=== PATIENT | female | born 1955 | race Caucasian/White ===

== ENCOUNTER 2016-08-27 02:47 | Emergency (ER) | payer BC ==
[~2016-08-27] VITALS: Ht 162.6 cm; Wt 67.0 kg
[2016-08-27 02:58] VITALS: Ht 162.6 cm; Wt 67.0 kg
[2016-08-27] MEDS ORDERED: ACETAMINOPHEN 500 MG TAB PO STA (03:22)
--- NOTE | 2016-08-27 03:26 | ERD ---
ER Documentation Chief Complaint Date/Time DATE: 08/27/16 TIME: 03:24 Chief Complaint fever,body aches,cough,chest congestion,lower back pain,[place] HPI 61-year-old female presents here in emergency department for complain of fever bodyaches, chest congestion, back pain and headache for 3 days. Patient has been having dry cough, does not cough up any phlegm or blood. Patient has not been having episodes of wheezing. Patient does not have any shortness of breath. Patient has been having fever, patient did not take any medications to help with symptoms. Patient denies any sick contacts. Patient denies any chest pain or palpitations. Patient denies any dizziness. ROS All systems reviewed and are negative except as per history of present illness. Medications Home Meds Active Scripts Cetirizine Hcl* (Zyrtec*) 10 Mg Capsule, 10 MG PO DAILY, #30 TAB.CHEW Prov:STEFAN RICHARDSON REGISTERED ACCOUNT ADMINISTRATOR 08/27/16 Ibuprofen* (Motrin*) 400 Mg Tab, 400 MG PO Q6H Y for PAIN AND OR ELEVATED TEMP, #30 TAB Prov:STEFAN RICHARDSON REGISTERED ACCOUNT ADMINISTRATOR 08/27/16 Oseltamivir Phosphate* (Tamiflu*) 75 Mg Capsule, 75 MG PO BID for 5 Days, CAP Prov:STEFAN RICHARDSON REGISTERED ACCOUNT ADMINISTRATOR 08/27/16 Benzonatate* (Tessalon Perle*) 100 Mg Capsule, 100 MG PO Q8H Y for COUGH, #20 CAP Prov:STEFAN RICHARDSON REGISTERED ACCOUNT ADMINISTRATOR 08/27/16 Reported Medications [none] Unknown Strength No Conflict Check 08/27/16 Allergies Allergies: Coded Allergies: epinephrine (Verified Allergy, Unknown, 08/27/16) PMhx/Soc No Allergies to medications. History of Surgery: Yes (right knee/shoulder) Hx Alcohol Use: No Hx Substance Use: No Hx Tobacco Use: No Smoking Status: Current some day smoker FmHx Family History: diabetes Physical Exam Vitals Vital Signs Date Time Temp Pulse Resp B/P Pulse Ox O2 Delivery O2 Flow Rate FiO2 08/27/16 05:16 98.9 08/27/16 02:58 101.4 88 18 127/76 96 Physical Exam GENERAL: The patient is well developed and appropriate for usual state of health, in no apparent distress. HEENT: Atraumatic. Ears: Normal tympanic membrane, no erythema or bulging. No ear canal swelling. No ear discharge. Nose: Erythematous nasal turbinates with clear nasal discharge. Throat: oropharynx erythematous with postnasal drip. No tonsillar swelling or tonsillar exudates. No lymphadenopathy. CHEST: Clear to auscultation bilaterally. There are no rales, wheezes or rhonchi. HEART: Regular rate and rhythm. No murmurs, clicks, rubs or gallops. No S3 or S4. ABDOMEN: Soft, nontender and nondistended. Good bowel sounds. No rebound or guarding. No gross peritonitis. No gross organomegaly or masses. No Bryant sign or McBurney point tenderness. BACK: No midline or flank tenderness. EXTREMITIES: Equal pulses bilaterally. There is no peripheral clubbing, cyanosis or edema. No focal swelling or erythema. Full range of motion. Grossly neurovascularly intact. NEURO: Alert and oriented. Cranial nerves 2-12 intact. Motor strength in all 4 extremities with 5/5 strength. Sensation grossly intact. Normal speech and gait. SKIN: There is no apparent rash or petechia. The skin is warm and dry. HEMATOLOGIC AND LYMPHATIC: There is no evidence of excessive bruising or lymphedema. No gross cervical, axillary, or inguinal lymphadenopathy. Results 24 hrs Current Medications Medications (Trade) Dose Ordered Sig/Jose Route PRN Reason Start Time Stop Time Status Last Admin Dose Admin Ibuprofen (Motrin) 600 mg ONCE ONCE PO 08/27/16 03:30 08/27/16 03:31 DC 08/27/16 03:34 Acetaminophen (Tylenol Tab) 500 mg ONCE STAT PO 08/27/16 03:22 08/27/16 03:24 DC 08/27/16 03:34 Guaifenesin/ Codeine Phosphate (Robitussin Ac Liquid Cup) 10 ml ONCE ONCE PO 08/27/16 03:30 08/27/16 03:32 DC Patient was given medicines for fever control here in the emergency department. After treatment, patient temperature improved and lower. Patient appears well and is hemodynamically stable. Guaifenesin with codeine was given here in emergency department to help with cough. PROCEDURE: Chest. CLINICAL INDICATION: Cough. TECHNIQUE: Single frontal view of the chest was obtained. COMPARISON: None. FINDINGS: The cardiac silhouette is within normal limits. The aortic arch is unremarkable. There is no focal consolidation, vascular congestion or pleural effusion. There is no pneumothorax. IMPRESSION: No evidence for active cardiopulmonary disease. .Alfonso Villalobos MD, Date Time Electronically viewed and signed by .Alfonso Villalobos MD, on 08/27/2016 04:26 Procedure Result Microbiology INFLUENZA A & B BY EIA Final INFLU A&B BY EIA INFLUENZA A POSITIVE (Ref Range Neg) INFLUENZA B NEGATIVE (Ref Range Neg) Phoned to DouglasPhilipDEBRA @ [phone] BY CRL. Procedures/MDM Medical Decision Making: Patient symptoms are most likely consistent with influenza A. There is low suspicion for Pneumonia at this time since patients lungs sounds are clear, patient O2 saturation is normal and patient doesnt show any respiratory distress. Patients chest xray doesnt show infiltrates or any other cardiopulmonary emergencies at this time. There is low suspicion for other cardiopulmonary emergencies at this time such as CHF, Pulmonary Embolism, Pneumothorax, Aortic Aneurysm or any other cardiopulmonary emergencies at this time. There is low suspicion for sepsis. Patient appears well and is hemodynamically stable. Fever is controlled with medicines. Disposition: Home. Condition: Stable Prescriptions: Tessalon Perles, Zyrtec, ibuprofen, Tamiflu Instructions: Patient is advised to take medications as prescribed. Patient is advised to rest. Patient advised to increase fluid intake, do humidifier at home and if possible, do salt water gargles. Patient is advised that if symptoms are worse, shortness of breath, uncontrolled fever, stridor, vomiting, worst signs and symptoms to return to emergency department immediately. Otherwise, patient is advised to follow up with primary doctor in 5-7 days. Departure Diagnosis: Primary Impression: Influenza Condition: Stable Patient Instructions: Influenza (Adult) Additional Instructions: Patient is advised to take medications as prescribed. Patient is advised to rest. Patient advised to increase fluid intake, do humidifier at home and if possible, do salt water gargles. Patient is advised that if symptoms are worse, shortness of breath, uncontrolled fever, stridor, vomiting, worst signs and symptoms to return to emergency department immediately. Otherwise, patient is advised to follow up with primary doctor in 5-7 days. STEFAN RICHARDSON NP Aug 27, 2016 03:26
[2016-08-27] MEDS ORDERED: GUAIFENESIN/CODEINE 5ML CUP PO ONE (03:30)
[2016-08-27] MEDS ORDERED: IBUPROFEN 600 MG TAB PO ONE (03:30)
--- NOTE | 2016-08-27 04:26 | RADRPT ---
PROCEDURE: Chest. CLINICAL INDICATION: Cough. TECHNIQUE: Single frontal view of the chest was obtained. COMPARISON: None. FINDINGS: The cardiac silhouette is within normal limits. The aortic arch is unremarkable. There is no focal consolidation, vascular congestion or pleural effusion. There is no pneumothorax. IMPRESSION: No evidence for active cardiopulmonary disease. .Alfonso Villalobos MD, Date Time Electronically viewed and signed by .Alfonso Villalobos MD, on 08/27/2016 04:26 .T/
[2016-08-27] MEDS ORDERED: CETI10CA PO (04:46)
[2016-08-27] MEDS ORDERED: OSLT75C PO (04:46)
[2016-08-27] MEDS ORDERED: IBUP400T22 PO (04:46)
[2016-08-27] MEDS ORDERED: BENZ100C70 PO (04:46)
[2016-08-27 05:16] VITALS: TEMP 98.9
== END 2016-08-27 05:17 | disposition home or self-care (01) ==
LOC: E/R 02:47 → FTE 05:17
DX: J09.X9 Influenza due to identified novel influenza A virus with other manifestations (principal); F17.210 Nicotine dependence, cigarettes, uncomplicated
CPT/HCPCS: 71010; 87400; Z7502; Z7610

== ENCOUNTER 2017-08-28 08:15 | Emergency (ER) | END 2017-08-28 11:33 | disposition home or self-care (01) ==

== ENCOUNTER → 2018-11-17 | Outpatient (CLI) | payer MEDICARE, BC ==
[~2018-11-17] MED LIST: BENZ-6 PO; CETI10CA PO; FIORICET PO; IBUP-1561 PO; NAPR-985 PO; ONDA4TAB8 PO; OSEL75CA23 PO
--- NOTE | 2018-11-18 14:35 | CONS ---
Assessment/Plan Assessment/Plan Hospital Course (Demo Recall) 63-year-old female with severe left knee Pes Anserine Bursitis and distal hamstring tendinitis. Given her history of diabetes and significant elevation in serum glucose from steroid injections that is not a good option today. She also cannot tolerate oral NSAIDs secondary to GERD. At this time I will start her with physical therapy and diclofenac gel. If this does not help I will need her to speak with her primary care physician to better control her diabetes so she can have a steroid injection. Follow-up 3 months Consultation Date/Type/Reason Admit Date/Time Date of Consultation: Nov 17, 2018 Reason for Consultation Left knee pain Date/Time of Note DATE: 11/18/18 TIME: 14:26 Hx of Present Illness Is a 63-year-old female with a chief complaint of left knee pain. The pain began approximately 3 weeks ago. The patients pain is in the anteromedial aspect of the left knee. The pain started after she twisted her knee at home 3 weeks ago. Denies mechanical symptoms pain is not radiating to the lower leg. The pain is rated as a 9/10. Patient denies complaints of numbness or tingling. The pain is exacerbated by climbing stairs and ambulation. Pain is not relieved by NSAID's. Patient has been taking ibuprofen on a p.r.n. basis as well as using ice. Patient is diabetic. States she does not take her medication. States last time she had a steroid injection her blood sugar was above 500. Duration: 3 weeks Injury: Twisted knee Walking tolerance: 0 Limp: Yes Support: No Swelling: No Crepitation: Yes Instability: No Stairs: Painful Physical Therapy: No Injections: No NSAIDs: Contraindicated secondary to GERD Prior surgery: No Back pain: Yes Hip pain: No Risk of AVN : No Patient denies fever, chills, shortness of breath, chest pain, nausea/vomiting, constipation, diarrhea, numbness, and tingling. Past Medical History Diabetes Poor circulation Headaches Osteoporosis Kidney stones GERD Home Meds Active Scripts Ondansetron Hcl* (Zofran*) 4 Mg Tablet, 4 MG PO Q6H for NAUSEA AND/OR VOMITING, #30 TAB Prov:LOGAN PASCUAL PA-C 08/28/17 Naproxen* (Naprosyn*) 500 Mg Tablet, 500 MG PO BID PRN for PAIN AND/OR INFL AMMATION, #30 TAB Prov:LOGAN PASCUAL PA-C 08/28/17 Acetamin/Butalbital/Caffeine* (Fioricet*) [id number] Tab, 1 TAB PO Q6H PRN for PAIN, #30 TAB Prov:LOGAN PASCUAL PA-C 08/28/17 Cetirizine Hcl* (Zyrtec*) 10 Mg Capsule, 10 MG PO DAILY, #30 TAB.CHEW Prov:STEFAN RICHARDSON BIOFUELS PRODUCTION ASSOCIATE 08/27/16 Ibuprofen* (Motrin*) 400 Mg Tab, 400 MG PO Q6H PRN for PAIN AND OR ELEVATED TEMP, #30 TAB Prov:STEFAN RICHARDSON BIOFUELS PRODUCTION ASSOCIATE 08/27/16 Oseltamivir Phosphate* (Tamiflu*) 75 Mg Capsule, 75 MG PO BID for 5 Days, CAP Prov:STEFAN RICHARDSON BIOFUELS PRODUCTION ASSOCIATE 08/27/16 Benzonatate* (Tessalon Perle*) 100 Mg Capsule, 100 MG PO Q8H PRN for COUGH, #20 CAP Prov:STEFAN RICHARDSON BIOFUELS PRODUCTION ASSOCIATE 08/27/16 Reported Medications [none] Unknown Strength No Conflict Check 08/27/16 Allergies: Coded Allergies: epinephrine (Verified Allergy, Unknown, 08/27/16) latex (Verified Allergy, Unknown, welts, 08/28/17) Past Surgical History Right knee meniscectomy right shoulder surgery Family History Significant Family History: no pertinent family hx Social History Alcohol Use: none Smoking Status: Light tobacco smoker Drug Use: none Exam/Review of Systems Exam Vitals Weight: 149 pounds Height: 5 foot 4 inches Temperature: 98.6 Heart Rate: 64 Blood Pressure: 119/60 Respiratory Rate: 12 Exam General: Alert, oriented x3. No Acute Distress. Heart: Regular rate and rhythm. Lungs: No respiratory distress. No accessory muscle use. Musculoskeletal: Left Knee This is a well developed female who is alert, oriented times three and in no apparent distress. Skin is intact over the left knee as well as the lower extremity with no abrasions, lacerations, or ulcerations. Observation of the patient's gait reveals an antalgic gait with No thrust. Frontal plane alignment is neutral. There is NO pain on palpation of either joint line. There is tenderness to palpation over the distal hamstring tendon and Pes anserine. The patient demonstrates grinding anteriorly with ROM. Pain with full extension. Range of motion: 0 extension to approximately 1 to degrees of flexion. Collateral ligament testing reveals no in stability with varus or valgus stress at 0 and 30 degrees of flexion. Negative Kymberly's and negative posterior drawer. Neurovascularly intact with 5/5 EHL/tibialis anterior/gastroc. Sensation intact to light touch in a sural, saphenous, deep peroneal, superficial peroneal, medial and lateral plantar nerve distribution. Palpable, symmetric dorsalis pedis and posterior tibial pulses in both lower extremities. Hip examination normal. Imaging Imaging The patient received a standard set of films today that were personally reviewed. Imaging included a standing bilateral knee AP, PA flexion, merchant views and a dedicated lateral of the affected knee: There is slight varus alignment of the knee. There is mild loss of joint space medial compartment(s). There is no osteophyte formation. There is no subchondral sclerosis. There are no subchondral cysts. Degenerative changes are most severe in the medial compartment(s) LOWELL TORRES MD Nov 18, 2018 14:35
--- NOTE | 2018-11-19 22:32 | RADRPT ---
PROCEDURE: XR Knees. CLINICAL INDICATION: Bilateral knee pain. TECHNIQUE: Total of eight views. Weightbearing frontal, oblique, and lateral views of the both kne es. Patellar views of both knees. COMPARISON: Right knee radiographs dated 01/30/2016. FINDINGS: There is no fracture or dislocation. The soft tissues are normal. There are degenerative changes of both knees with osteophytes arising from all 3 joint compartment ma rgins bilaterally. There is right knee medial joint compartment narrowing and subarticular sclerosis, worse than seen previously. There is no lytic or blastic lesion. There is no radiopaque foreign body. IMPRESSION: 1. Moderate degenerative changes of the right knee, worse than seen previously. 2. Mild degenerative change of the left knee. 3. Otherwise unremarkable study. RPTAT: QQ .Napoleon Geller MD, MD Date Time Electronically viewed and signed by .Napoleon Geller MD, MD on 11/19/2018 22:32 .R/
== END | disposition home or self-care (01) ==
LOC: HKI 10:09
PROVIDERS: ATTEND Orthopaedic Surgery Adult Reconstructive Orthopaedic Surgery
DX: M70.52 Other bursitis of knee, left knee (principal); M76.9 Unspecified enthesopathy, lower limb, excluding foot; E11.8 Type 2 diabetes mellitus with unspecified complications; N20.0 Calculus of kidney; K21.9 Gastro-esophageal reflux disease without esophagitis; F17.210 Nicotine dependence, cigarettes, uncomplicated
CPT/HCPCS: 73564; G0463